=== PATIENT | female | born 1980 | race Caucasian/White ===

== ENCOUNTER 2019-04-19 19:21 | Emergency (ER) | payer OTHER ==
[2019-04-19] MEDS: FLUCONAZOLE 150 MG TAB PO (20:42)
== END 2019-04-19 21:23 | disposition home or self-care (01) ==
LOC: FTE 19:21
DX: L30.9 Dermatitis, unspecified (principal); B37.9 Candidiasis, unspecified; Z87.891 Personal history of nicotine dependence
CPT/HCPCS: 99283; Z7502

== ENCOUNTER 2019-05-19 23:36 | Emergency (ER) | payer SELFPAY, OTHER | END 2019-05-20 01:35 | disposition left against medical advice (07) | LOC: FTE 23:36 | DX: Z53.21 Procedure and treatment not carried out due to patient leaving prior to being seen by health care provider (principal) ==